=== PATIENT | male | born 1975 | race Caucasian/White ===

== ENCOUNTER → 2019-09-06 | Outpatient (CLI) | payer OTHER ==
--- NOTE | 2019-09-06 09:08 | MR ---
EXAMINATION TYPE: MR shoulder RT wo con DATE OF EXAM: 09/06/2019 9:02 AM COMPARISON: NONE HISTORY: R shoulder pain TECHNIQUE: Multiplanar multispin echo imaging of the right shoulder was performed. FINDINGS: Rotator cuff : Thickening and heterogeneity of the supraspinatus tendon compatible with chronic tendi nopathy. Partial undersurface tear at the level of the insertion of the supraspinatus tendon without evidence for retracted tear. Remaining constituents of the rotator cuff are intact. Bursa: No bursal effusion or thickening is seen. Musculature: There is no muscular tear, contusion, or atrophy. Acromioclavicular joint : Subacromial spur results in impingement. Moderate AC joint arthropathy iden tified. Osseous structures : There are no fractures or regions of abnormal bone marrow signal intensity. Long biceps tendon : The biceps tendon is normally situated within the bicipital groove. No complete or partial biceps tendon tear is present. Glenohumeral Joint fluid : There is no glenohumeral joint effusion. Cartilage and Bone : No focal hyaline cartilage defects are noted. No Hill-Sachs, reverse Hill-Sachs, or bony Bankart lesions are seen. Labrum : There are no SLAP or soft tissue Bankart lesions. No paralabral cysts are seen. OTHER FINDINGS : none IMPRESSION: 1. Chronic tendinopathy with partial tear supraspinatus tendon. 2. Impingement as noted.
== END ==
LOC: RADMRIMAIN 08:15
PROVIDERS: ATTEND Orthopaedic Surgery Sports Medicine
DX: M75.81 Other shoulder lesions, right shoulder (principal); M75.111 Incomplete rotator cuff tear or rupture of right shoulder, not specified as traumatic; M25.811 Other specified joint disorders, right shoulder

== ENCOUNTER → 2019-11-08 | Outpatient (CLI) | payer OTHER ==
--- NOTE | 2019-11-08 10:48 | CT ---
EXAMINATION TYPE: CT abdomen pelvis w con DATE OF EXAM: 11/08/2019 COMPARISON: None HISTORY: Pt feels lumps in abd, diverticulitis CT DLP: 1672 mGycm Automated exposure control for dose reduction was used. TECHNIQUE: Helical acquisition of images was performed from the lung bases through the pelvis. CONTRAST: Performed with Oral Contrast and with IV Contrast, patient injected with 100 mL of Isovue 300. FINDINGS: LUNG BASES: Minimal subsegmental dependent bibasilar atelectasis. LIVER/GB: Low-density hepatic lesion measures 1.4 cm and has an average Hounsfield unit 14 compatible with a benign cyst on series 3 image 11. Remainder of the unenhanced liver is unremarkable. Lamellat ed gallstone is seen in the gallbladder fundus. PANCREAS: No significant abnormality is seen. SPLEEN: No significant abnormality is seen. Small splenule seen adjacent to the spleen. ADRENALS: No significant abnormality is seen. KIDNEYS: The kidneys. Symmetric enhancement and excretion without hydronephrosis. FREE AIR: No free air is visualized. ADENOPATHY: No greater than 1 cm short axis lymph nodes in the abdomen or pelvis. REPRODUCTIVE ORGANS: Prostate gland is slightly heterogenous but nonenlarged. OSSEOUS STRUCTURES: Mild degenerative changes are seen of the thoracolumbar spine most significant a t L5-S1. Small Schmorl's node of the superior endplate of L4. BOWEL: There is lipomatous hypertrophy of the ileocecal valve. Appendix is opacified and within norm al limits. Contrast does not extend into the transverse colon and remainder of the colon. No dilated large or small bowel. Few scattered small colonic diverticula without pericolonic fat stranding. OTHER: Mild noncalcific atheromatous change of the abdominal aorta and mild calcification as well as noncalcified change of the abdominal aortic branches. In the left paracentral ventral subcutaneous tissues there is some ill-defined fat stranding and seri es 3 image 50 IMPRESSION: 1. It is uncertain where the patient's palpable abnormality is located. In the left para midline subc utaneous tissues near the level of the umbilicus there is slight subcutaneous fat stranding and could represent fat necrosis, contusion, or lipomas. 2. Few scattered colonic diverticula with no evidence of acute diverticulitis. 3. Benign-appearing hepatic cyst.
== END | disposition home or self-care (01) ==
LOC: RADCTMAIN 07:27
PROVIDERS: ATTEND Surgery Plastic and Reconstructive Surgery
DX: K57.30 Diverticulosis of large intestine without perforation or abscess without bleeding (principal); K76.89 Other specified diseases of liver
CPT/HCPCS: 74177; Q9967

== ENCOUNTER → 2019-11-28 | Outpatient (CLI) | payer OTHER ==
[2019-11-28 17:07] LABS: HCT 40.6 % (39.0-53.0); HGB 13.6 gm/dL (13.0-17.5); MCH 30.8 pg (25.0-35.0); MCHC 33.5 g/dL (31.0-37.0); MCV 91.7 fL (80.0-100.0); Mean Platelet Volume 7.2; Platelet Count 254 k/uL (150-450); RBC 4.43 m/uL (4.30-5.90); RDW 12.6 % (11.5-15.5); WBC 5.1 k/uL (3.8-10.6)
== END | disposition home or self-care (01) ==
LOC: LABPAT 16:02
PROVIDERS: ATTEND Surgery Plastic and Reconstructive Surgery
DX: Z01.818 Encounter for other preprocedural examination (principal); K80.20 Calculus of gallbladder without cholecystitis without obstruction
CPT/HCPCS: 85027; 93005

== ENCOUNTER 2019-12-02 07:15 | Day surgery (SDC) | payer OTHER ==
[2019-12-01 08:17] VITALS: BMI 32.2
--- NOTE | 2019-12-01 11:53 | P.GSHP ---
History of Present Illness H&P Date: 12/02/19 CHIEF COMPLAINT: Cholecystitis HISTORY OF PRESENT ILLNESS: The patient is a 44-year-old male who presents with history of epigastric including right upper quadrant abdominal pain. He underwent diagnostic studies for the gallbladder. Separately his clinical picture was consistent with cholecystitis. Now he presents for surgical intervention. PAST MEDICAL HISTORY: Please see list PAST SURGICAL HISTORY: Please see list MEDICATIONS: Please see list ALLERGIES: Denies. SOCIAL HISTORY: Please see list FAMILY HISTORY: Pertinent for gallbladder disease REVIEW OF ORGAN SYSTEMS: CONSTITUTIONAL: No reports of fevers or chills. HEENT: Denies any troubles with the vision or hearing. ENDOCRINE: No reports of hypothyroidism. No diabetes. RESPIRATORY: No recent pneumonias. CARDIOVASCULAR: Denies chest pain or palpitations GI: No blood in stools or constipation. MUSCULOSKELETAL: Has occasional joint pain including back pain. NEURO: No seizure disorders or headaches. No recent stroke. PSYCH: Has depression HEMATOLOGIC: No personal or family history of DVTs or pulmonary emboli. PHYSICAL EXAM: VITAL SIGNS: Afebrile vital signs stable GENERAL: Well-developed pleasant male in no acute distress. HEENT: No scleral icterus. Extraocular movements grossly intact. Moist buccal mucosa. NECK: Supple without lymphadenopathy. CHEST: Unlabored respirations. Equal bilateral excursions. CARDIOVASCULAR: Regular rate regular rhythm rhythm. Distal 2+ pulses. ABDOMEN: Soft, nondistended. Tender along the epigastrium and right upper quadrant. MUSCULOSKELETAL: No clubbing, cyanosis, or edema. NEURO : No focal or lateralizing signs. Cranial nerves II-12 within normal limits. PSYCH: Alert and oriented to person, place and time. SKIN: Well perfused. Good skin turgor. ASSESSMENT: 1. Epigastric and right upper quadrant abdominal pain 2. Chronic cholecystitis PLAN: 1. Will need a robotic cholecystectomy possible open. Benefits and risks were described. 2. Heparin for DVT prophylaxis 5000 units. 3. Antibiotic prophylaxis. Past Medical History Past Medical History: Hyperlipidemia, Myocardial Infarction ([place]) Additional Past Medical History / Comment(s): GALLBLADDER DYSFUNCTION Last Myocardial Infarction Date:: 09/2014 History of Any Multi-Drug Resistant Organisms: None Reported Additional Past Surgical History / Comment(s): COLONOSCOPY Past Anesthesia/Blood Transfusion Reactions: No Reported Reaction Past Psychological History: No Psychological Hx Reported Smoking Status: Former smoker Past Alcohol Use History: None Reported Additional Past Alcohol Use History / Comment(s): QUIT SMOKING 2015 Past Drug Use History: None Reported - Past Family History Mother Family Medical History: No Reported History Medications and Allergies Home Medications Medication Instructions Recorded Confirmed Type Atorvastatin [Lipitor] 40 mg PO HS 11/24/19 12/01/19 History FLUoxetine HCL [PROzac] 20 mg PO HS 11/24/19 12/01/19 History Allergies Allergy/AdvReac Type Severity Reaction Status Date / Time No Known Allergies Allergy Verified 12/01/19 08:15
[~2019-12-02 07:15] MED LIST: ACETAMINOPHEN TAB 500 MG TAB PO STA; DEXAMETHASONE SOD PHOSPHATE 10 MG/ML 1 ML VIAL IV ONE; GABAPENTIN 300 MG CAP PO STA; HEPARIN SODIUM,PORCINE 5,000 UNIT/ML 1 ML VIAL SQ ONE; HYDROmorphone 0.5 MG/0.5 ML SYRINGE IVP PRN; INDOCYANINE GREEN 25 MG VIAL IV ONE; LACTATED RINGERS 1,000 ML IV SCH; LIDOCAINE 1% (10MG/ML) FOR IV START INTRADERMA PRN; MIDAZOLAM 2 MG/2 ML VIAL IV PRN; ONDANSETRON 4 MG/2 ML VIAL IVP ONE; SCOPOLAMINE 1.5MG/72HR PATCH TRANSDERM STA; ceFAZolin 3 GM in SODIUM CHLORIDE 0.9% 100 ML IVPB ONE; fentaNYL (PF) 50 MCG/ML 2 ML AMP IVP PRN
[2019-12-02 08:23] LABS: ALT 48 U/L (4-49); AST 36 U/L (17-59); African American GFR (CKD) >90 (>60 ml/min/1.73 sqM); Alkaline Phosphatase 66 U/L (38-126); Anion Gap 7 mmol/L; Blood Urea Nitrogen 13 mg/dL (9-20); Carbon Dioxide 26 mmol/L (22-30); Chloride 105 mmol/L (98-107); Glucose 101 mg/dL (74-99); Non-African American GFR(CKD) >90 (>60 ml/min/1.73 sqM); Potassium 4.5 mmol/L (3.5-5.1); Sodium 138 mmol/L (137-145); Total Bilirubin 0.8 mg/dL (0.2-1.3); Total Protein 6.7 g/dL (6.3-8.2)
[2019-12-02] MEDS ORDERED: KETAMINE 10 MG/ML 20 ML VIAL ONE (09:12)
[2019-12-02] MEDS ORDERED: KETOROLAC 30 MG/ML 1 ML VIAL ONE (09:12)
[2019-12-02] MEDS ORDERED: PROPOFOL 10 MG/ML 20 ML VIAL IV ONE (09:12)
[2019-12-02] MEDS ORDERED: NEOSTIGMINE 1 MG/ML 10 ML VIAL ONE (09:12)
[2019-12-02] MEDS ORDERED: HYDROmorphone (PF) 1 MG/ML ONE (09:12)
[2019-12-02] MEDS ORDERED: ROCURONIUM BROMIDE 10 MG/ML 5 ML VIAL IV ONE (09:12)
[2019-12-02] MEDS ORDERED: LIDOCAINE 1% INJ 10MG/ML (20 ML MDV) ONE (09:12)
[2019-12-02] MEDS ORDERED: MIDAZOLAM 2 MG/2 ML VIAL ONE (09:12)
[2019-12-02] MEDS ORDERED: fentaNYL (PF) 50 MCG/ML 2 ML AMP ONE (09:12)
[2019-12-02] MEDS ORDERED: GLYCOPYRROLATE 0.2 MG/ML 2 ML VIAL ONE (09:12)
[2019-12-02] MEDS ORDERED: INDOCYANINE GREEN 25 MG VIAL IV ONE (09:12)
[2019-12-02] MEDS ORDERED: LIDOCAINE 1%-EPI 1:100,000 20 ML VIAL SQ ONE (09:40)
[2019-12-02] MEDS ORDERED: LACTATED RINGERS 1,000 ML IV ONE (10:19)
--- NOTE | 2019-12-02 10:56 | P.OP ---
Date of Procedure: 12/02/19 Description of Procedure: SURGEON: SHARA ROCHE MD PREOPERATIVE DIAGNOSES: 1. Right upper quadrant abdominal pain 2. Symptomatic cholelithiasis 3. Chronic cholecystitis 4. Depressive disorder 5. History of myocardial infarction 6. Hyperlipidemia POSTOPERATIVE DIAGNOSES: 1. Right upper quadrant abdominal pain 2. Symptomatic cholelithiasis 3. Chronic cholecystitis 4. Depressive disorder 5. History of myocardial infarction 6. Hyperlipidemia 7. Peritoneal adhesions OPERATION: 1. Robotic-assisted da Talya Xi laparoscopic lysis of adhesions over 30 miniutes 2. Robotic-assisted da Talya Xi laparoscopic cholecystectomy, multiport with FIREFLY ESTIMATED BLOOD LOSS: 5 mL. SPECIMENS REMOVED: Gallbladder. COMPLICATIONS: None. OPERATIVE FINDINGS: 1. Complete scarring around the gallbladder with greater omental adhesions to liver and gallbladder requiring extensive lysis of adhesions 2. Dimunitive cystic duct. INDICATIONS: The patient is a 44-year-old male who presents with cholelcystitis. Surgical intervention with a laparoscopic cholecystectomy was described at length including injury to the biliary tree, bleeding, infection, need for further surgery. Informed consent was obtained. Robotic assisted laparoscopic approach was described. Benefits and risks of the procedure including but not limited to bleeding, infection, injury to the biliary tree was described. Informed consent was obtained. DESCRIPTION OF PROCEDURE: Patient was brought to the operating room, placed in supine position. After general induction, the abdomen had been prepped and draped in standard sterile fashion. The robotic da Talya XI system was primed. After a timeout protocol was performed, the patient had been prepped and draped in standard sterile fashion. The patient was injected with indocyanine green. A 5 mm 0 degrees laparoscopic trocar entry was performed along the left upper quadrant. The abdomen insufflated to 15 mmHg pressure which was tolerated well. Diagnostic laparoscopy demonstrated no injury to bowel viscera or mesentery. The liver surface was unremarkable. Next, two 8 mm robotic ports were placed along the right upper abdomen. The camera 8-mm port was maintained along the epigastrium. Another 8 mm port was placed along the left upper abdominal wall after exchanging the 5 mm port. Please note that the ports were placed at least 10 to 15 cm away from the target anatomy of the gallbladder. The robot was docked along the left lateral abdomen. The patient was repositioned in reverse Trendelenburg position. Using a grasper for arm 3, a grasper for arm 4, including hook cautery for arm 1, the robotic system was docked and primed as described. Instruments were interchanged by the carpenter assistant installer including hook cautery, Bovie cautery and clip appliers. I had sat at the console. Extensive greater omental adhesions encased the right lower lobe of the liver including gallbladder. Extensive lysis of adhesions over 30 minutes was performed to free the gallbladder from its surrounding tissues. The gallbladder fundus was retracted over the dome of the liver. FIREFLY was used to identify the common bile duct. Initial attention was brought to the infundibulum which was gently retracted in the inferior lateral approach. A critical view of safety was obtained. The cystic duct was dimunitive and cauterized. Similarly the cystic artery was cauterized. Electro-Bovie cautery was used to remove the gallbladder from the hepatic fossa. Hemostasis was checked and found to be adequate. The robot was undocked. I re-scrubbed into the case. Using a 10 mm Endo Catch bag via the left upper quadrant incision, the specimen was removed from the abdominal cavity. All pneumoperitoneum instruments were evacuated from the abdominal cavity. The incisions were reapproximated using 4-0 Monocryl in an interrupted subcuticular fashion. Fascial defects were less than 8 mm in size. Please note along the trocar sites, local anesthetic was placed as a field block prior to insertion of all instruments. Liquid glue was applied to the skin. At the end of the procedure needle, sponge, and instrument count had been verified correct by the surgical corsetier. The patient was transferred to postanesthesia care unit in stable condition. Intraoperative films were shared with the patient's family who were very pleased with the level of care. Plan - Discharge Summary Discharge Rx Participant: Yes New Discharge Prescriptions: New Ibuprofen [Motrin] 600 mg PO Q8HR PRN #30 tab PRN Reason: Pain Acetaminophen Tab [Tylenol Tab] 1,000 mg PO Q6HR PRN #30 tablet PRN Reason: Pain Continue FLUoxetine HCL [PROzac] 20 mg PO HS Atorvastatin [Lipitor] 40 mg PO HS Discharge Medication List Atorvastatin [Lipitor] 40 mg PO HS 11/24/19 [History] FLUoxetine HCL [PROzac] 20 mg PO HS 11/24/19 [History] Acetaminophen Tab [Tylenol Tab] 1,000 mg PO Q6HR PRN #30 tablet 12/02/19 [Rx] Ibuprofen [Motrin] 600 mg PO Q8HR PRN #30 tab 12/02/19 [Rx] Follow up Appointment(s)/Referral(s): Shara Roche MD [STAFF PHYSICIAN] - 12/06/19 10:00 am Patient Instructions/Handouts: *Surgery [facility] - Scopalamine Patch Instructions, Laparoscopic Cholecystectomy (DC) Activity/Diet/Wound Care/Special Instructions: No lifting over 10 pounds in 2 weeks until December 15. May shower. No bath tub soaks for two weeks until December 15. Diet as tolerated. No driving while on narcotics. Use Tylenol and ibuprofen or Aleve scheduled for the next 24-48 hours for best pain relief. Use ice along incisions for the today to prevent swelling. Discharge Disposition: HOME SELF-CARE
[2019-12-02 10:58] VITALS: TEMP 97.2
[2019-12-02 11:09] VITALS: RESP 16
[2019-12-02] MEDS ORDERED: HYDROcodone/APAP 5-325MG 1 EACH TAB PO PRN (11:11)
[2019-12-02] MEDS ORDERED: KETOROLAC 30 MG/ML 1 ML VIAL IVP PRN (11:11)
[2019-12-02] MEDS ORDERED: SIMETHICONE 80 MG CHEWABLE PO ONE (12:00)
[2019-12-02] MEDS ORDERED: ONDANSETRON 4 MG/2 ML VIAL IVP ONE (13:48)
[2019-12-02 14:26] VITALS: BP 118/68; PULSE 60
== END 2019-12-02 14:35 | disposition home or self-care (01) ==
LOC: OR 07:15
PROVIDERS: ATTEND Surgery Plastic and Reconstructive Surgery
DX: K80.10 Calculus of gallbladder with chronic cholecystitis without obstruction (principal); K66.0 Peritoneal adhesions (postprocedural) (postinfection); E78.5 Hyperlipidemia, unspecified; I25.2 Old myocardial infarction; Z87.891 Personal history of nicotine dependence; R19.7 Diarrhea, unspecified; F32.9 Major depressive disorder, single episode, unspecified; E66.9 Obesity, unspecified; Z68.32 Body mass index [BMI] 32.0-32.9, adult; Z79.899 Other long term (current) drug therapy; Z98.890 Other specified postprocedural states
CPT/HCPCS: 47562; 88304; 80053; 49329; J2250; J1644; J1100; J2710; J0690; J2405; J2001; J3010; J1885; J1170; J2704

== ENCOUNTER → 2020-01-06 | Outpatient (CLI) | payer OTHER ==
--- NOTE | 2020-01-06 11:54 | P.PN ---
Subjective Progress Note Date: 01/06/20 Patient seen and evaluated. CT scan reviewed. No hernia or diverticulitis. Information discussed with patient.
--- NOTE | 2020-01-06 12:01 | CT ---
EXAMINATION TYPE: CT abdomen pelvis w con DATE OF EXAM: 01/06/2020 COMPARISON: CT abdomen and pelvis November 08, 2019. HISTORY: S/P Cholecystectomy, Diverticulitis with abscess. New onSet pain and fever. CT DLP: 1844.60 mGycm, Automated Exposure Control for Dose Reduction was Utilized. CONTRAST: CT scan of the abdomen and pelvis is performed with oral and with IV Contrast, patient injected with 100 ml mL of Isovue 300. FINDINGS: LUNG BASES: No significant abnormality is appreciated. LIVER/GB: Stable lobulated 2.3 cm hypodense lesion anterior liver favor simple thin-walled cyst. Gall bladder now surgically absent. No new suspicious biliary dilatation. PANCREAS: No significant abnormality is seen. SPLEEN: Tiny inferior splenule redemonstrated. ADRENALS: No significant abnormality is seen. KIDNEYS: No significant abnormality is seen. BOWEL: Suboptimal evaluation of bowel without enteric contrast. No suspicious small or large bowel di latation. No significant colonic diverticulosis or CT evidence for acute diverticulitis. Slightly red undant sigmoid colon. PROSTATE/SEMINAL VESICLES: Prostate gland upper limits of normal. LYMPH NODES: No greater than 1cm abdominal or pelvic lymph nodes are appreciated. OSSEOUS STRUCTURES: Moderate disc space narrowing lumbosacral junction with mild spurring. Spurring l ower thoracic spine redemonstrated. OTHER: Tiny fat-containing umbilical hernia. IMPRESSION: No significant new or acute finding is seen to account for patient's clinical symptoms. No CT evidence for acute diverticulitis.
== END | disposition home or self-care (01) ==
LOC: RADCTMAIN 10:31
PROVIDERS: ATTEND Surgery Plastic and Reconstructive Surgery
DX: K57.20 Diverticulitis of large intestine with perforation and abscess without bleeding (principal)
CPT/HCPCS: 74177; Q9967

== ENCOUNTER → 2020-03-01 | Outpatient (CLI) | payer OTHER ==
[2020-03-01 12:36] LABS: Basophils % (A) 1 %; Eosinophils # (A) 0.3 k/uL (0-0.7); Eosinophils % (A) 8 %; HCT 45.2 % (39.0-53.0); HGB 14.7 gm/dL (13.0-17.5); Lymphocytes # (A) 1.5 k/uL (1.0-4.8); Lymphocytes % (A) 34 %; MCH 30.5 pg (25.0-35.0); MCHC 32.5 g/dL (31.0-37.0); MCV 93.7 fL (80.0-100.0); Monocytes # (A) 0.3 k/uL (0-1.0); Monocytes % (A) 6 %; Neutrophils # (A) 2.1 k/uL (1.3-7.7); Neutrophils % (A) 48 %; Platelet Count 256 k/uL (150-450); RBC 4.83 m/uL (4.30-5.90); RDW 12.8 % (11.5-15.5); WBC 4.3 k/uL (3.8-10.6)
[2020-03-01 12:49] LABS: Potassium 4.3 mmol/L (3.5-5.1)
== END | disposition home or self-care (01) ==
LOC: LABPAT 11:27
PROVIDERS: ATTEND Orthopaedic Surgery
DX: Z01.818 Encounter for other preprocedural examination (principal); M75.41 Impingement syndrome of right shoulder
CPT/HCPCS: 36415; 80051; 85025

== ENCOUNTER 2020-03-23 07:46 | Day surgery (SDC) | payer OTHER ==
[2020-03-21 14:02] VITALS: BMI 32.8
--- NOTE | 2020-03-22 14:20 | HP ---
HISTORY AND PHYSICAL CHIEF COMPLAINT: Right shoulder pain. 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 He fell directly on the right side. He has had problems ever since. He has tried therapy along with an injection without much relief. He continues to have pain with overhead use and at night. He also notes some weakness. He has been taking Motrin 4 times a day. PAST MEDICAL HISTORY: Significant for hypertension and hypercholesterolemia. PAST SURGICAL HISTORY: Significant for cholecystectomy. CURRENT MEDICATIONS: Ibuprofen. ALLERGIES: Excedrin. FAMILY HISTORY: Significant for cancer and heart disease. SOCIAL HISTORY: Significant for previous tobacco use; however, he quit in 2014. REVIEW OF SYSTEMS: Sixteen point review of systems otherwise reviewed and is noncontributory. PHYSICAL EXAMINATION: On examination, the patient is approximately 6 foot 4, 270 pounds of endomorphic habitus. HEENT exam is nonfocal. Neck is supple. He is tender about the right shoulder anterior subacromial space. He has moderate subacromial crepitus. Active range of motion of the right shoulder: Forward elevation 150 degrees, external rotation with the arm at side 50 degrees, internal rotation to L4. Motor strength 5- over 5 for abduction and external rotation. Impingement test, NEER test, and Speed test are positive. His distal neurovascular exam appears intact in the right upper extremity. X-rays of the right shoulder obtained in the office show humeral head to acromial distance appears to be maintained. A type 2 acromion is noted. MRI report 09/06/2019 of right shoulder shows evidence of a partial tear involving the supraspinatus. IMPRESSION: Right rotator cuff strain/impingement/possible partial-thickness tear. RECOMMENDATIONS: I talked to the patient at length regarding his condition along with treatment options. He remains quite symptomatic despite conservative measures. After thorough discussion, he opts to proceed with surgery. We will plan to proceed with right shoulder arthroscopy with probable subacromial decompression and possible rotator cuff debridement versus repair. We will likely perform it as an outpatient procedure. Risks and benefits were discussed at length in layman's terms. MMODL / IJN: [id number] /
[~2020-03-23 07:46] MED LIST changes: -ACETAMINOPHEN TAB 500 MG TAB PO STA; -GABAPENTIN 300 MG CAP PO STA; -HEPARIN SODIUM,PORCINE 5,000 UNIT/ML 1 ML VIAL SQ ONE; -INDOCYANINE GREEN 25 MG VIAL IV ONE; +KETOROLAC 30 MG/ML 1 ML VIAL IVP SCH; -LACTATED RINGERS 1,000 ML IV SCH; +METOCLOPRAMIDE 5 MG/ML 2 ML VIAL IVP PRN; -MIDAZOLAM 2 MG/2 ML VIAL IV PRN; -SCOPOLAMINE 1.5MG/72HR PATCH TRANSDERM STA; -fentaNYL (PF) 50 MCG/ML 2 ML AMP IVP PRN
[2020-03-23 08:00] VITALS: TEMP 97.2
[2020-03-23] MEDS ORDERED: ONDANSETRON 4 MG/2 ML VIAL ONE (08:03)
[2020-03-23] MEDS: LACTATED RINGERS 1,000 ML IV SCH ×2 (08:14→09:11)
[2020-03-23] MEDS ORDERED: MIDAZOLAM 2 MG/2 ML VIAL IV ONE (08:40)
[2020-03-23] MEDS ORDERED: MIDAZOLAM 2 MG/2 ML VIAL ONE (09:45)
[2020-03-23] MEDS ORDERED: ROPIVACAINE 5 MG/ML 30 ML VIAL ONE (09:45)
[2020-03-23] MEDS ORDERED: SUCCINYLCHOLINE CHLORIDE 100 MG/5 ML SYR IV ONE (09:45)
[2020-03-23] MEDS ORDERED: PROPOFOL 10 MG/ML 20 ML VIAL IV ONE (09:45)
[2020-03-23] MEDS ORDERED: PHENYLEPHRINE-0.9% NACL SYG 1 MG/10 ML SYRINGE ONE (09:45)
[2020-03-23] MEDS ORDERED: fentaNYL (PF) 50 MCG/ML 2 ML AMP ONE (09:45)
[2020-03-23] MEDS ORDERED: KETOROLAC 30 MG/ML 1 ML VIAL ONE (09:45)
[2020-03-23] MEDS ORDERED: DEXAMETHASONE SOD PHOSPHATE 4 MG/ML 1 ML VIAL ONE (09:45)
[2020-03-23] MEDS ORDERED: EPINEPHrine (PF) 1 ML in SODIUM CHLORIDE 0.9% IRRIGATIO 3,000 ML IRRIGATION ONE ×8 (09:51)
--- NOTE | 2020-03-23 11:11 | P.OP ---
Date of Procedure: 03/23/20 Preoperative Diagnosis: Right shoulder impingement Postoperative Diagnosis: Same in addition to acromioclavicular joint arthritis, 1 cm rotator cuff tear Procedure(s) Performed: Right shoulder arthroscopic subacromial decompression/distal clavicular resect ion/rotator cuff repair Implants: Arthrex 4.75 mm swivel lock anchor 1 Anesthesia: meredith WHALEY Surgeon: Gabriel Gomes Wellness Assistant #1: Bruce Frankel Pathology: none sent Condition: stable Disposition: PACU Indications for Procedure: The patient's a 44-year-old male who presents with persistent/progressive right shoulder pain after an injury last year despite conservative measures. After th orough discussion of the options To proceed with surgery. Operative risks to include infection, neurovascular injury, development of blood clots, possible tendon rerupture, possible postoperative stiffness and need for subsequent procedures was discussed. Informed consent was obtained. Operative Findings: As below Description of Procedure: The patient was brought to the operating room, and after induction of general anesthesia was placed in a beachchair position. A preoperative interscalene block was placed for postoperative analgesia. I examined the right shoulder. There was no gross block to passive motion or gross glenohumeral instability. The right upper extremity was prepped and draped in normal fashion. The bony outlines the acromion, distal clavicle, and coracoid process were outlined with a skin marker. The glenohumeral joint was inflated with 50 mL of saline utilizing a spinal needle from posterior approach. A posterior portal was made through a 5 mm skin incision 1 cm medial and inferior to the posterior lateral border time. A blunt trocar was used to easily into the joint. Diagnostic arthroscopy was performed. An anterior portal was made just lateral to the coracoid process entering the joint above the subscapularis tendon. The subscapularis tendon appeared to be intact. Anterior labrum was intact. The inferior recess was inspected. The posterior labrum was intact. The biceps and anchor were intact. On inspection the rotator cuff, it was intact on the articular surface. The arthroscope was placed into the subacromial space. A lateral portal was made 2 centimeters inferior to the anterior lateral border of the acromion. The soft tissue on the undersurface of the acromion was debrided with a motorized shaver and electrocautery clearly defining the anterior medial and lateral borders as well as the distal clavicle. An anterior inferior acromioplasty was performed with a motorized miguel starting anterolateral, then extending this posteriorly, then extending this medially. I converted to a flat acromion and this was verified in the posterior and lateral viewing portals. The distal 4 mm of clavicle was resected with a motorized miguel as there was significant arthritis and subacromial impingement. The rotator cuff was inspected. There was a high-grade partial-thickness tear involving the posterior aspect the supraspinatus. This went approximately 80% through the tendon. This was completed with a motorized shaver. This measured approximately 1 cm. #2 fiber tape was then passed with a [employer] suture passer. A 4.75 mm swivel lock anchor was then placed laterally after capturing these 2 limbs. Good purchase was obtained. Final arthroscopic view showed adequate compression at the footprint. The arthroscope was then removed. The portals were closed with simple 3-0 nylon sutures. A sterile dressing was applied in addition to an abductor brace. The patient was then awoken from general anesthesia and transferred to recovery room in good condition. Blood loss was estimated at 10 mL. No complications were incurred. Sponge and needle counts were correct in the case. Nico MCNEILL assisted and the major components of the case to include arm positioning, anchor placement, and rotator cuff repair.
[2020-03-23 12:01] VITALS: RESP 20
[2020-03-23 12:40] VITALS: BP 110/60; PULSE 90
--- NOTE | 2020-03-24 18:50 | P.ANPRN ---
Procedure Note - Anesthesia - Nerve Block Performed Right Interscalene Single Time Out Performed: Yes Date of Procedure: 03/23/20 Procedure Start Time: : Procedure Stop Time: :34 Location of Patient: PreOp Indication: Acute Post-Operative Pain, Requested by Surgeon Sedation Type: Sedate with meaningful contact maintained Preparation: Sterile Prep Position: Supine Needle Types: Pajunk Needle Gauge: 21 Ultrasound used to visualize needle placement: Yes Ultrasound used to observe medication spread: Yes Blood Aspirated: No Pain Paresthesia on Injection Noted: No Resistance on Injection: Normal Image Stored and Saved: Yes Events: Uneventful and Well Tolerated (ropi .5% 30cc plus dexamethasone 4mg)
== END 2020-03-23 12:33 | disposition home or self-care (01) ==
LOC: OR 07:46
PROVIDERS: ATTEND Orthopaedic Surgery
DX: S46.011A Strain of muscle(s) and tendon(s) of the rotator cuff of right shoulder, initial encounter (principal); M19.011 Primary osteoarthritis, right shoulder; M75.41 Impingement syndrome of right shoulder; I25.10 Atherosclerotic heart disease of native coronary artery without angina pectoris; I10 Essential (primary) hypertension; Z90.49 Acquired absence of other specified parts of digestive tract; Z88.6 Allergy status to analgesic agent; Z87.891 Personal history of nicotine dependence; Z80.9 Family history of malignant neoplasm, unspecified; Z82.49 Family history of ischemic heart disease and other diseases of the circulatory system; E78.2 Mixed hyperlipidemia; F32.9 Major depressive disorder, single episode, unspecified; E66.9 Obesity, unspecified; N52.9 Male erectile dysfunction, unspecified; Z68.35 Body mass index [BMI] 35.0-35.9, adult; W19.XXXA Unspecified fall, initial encounter; Y99.0 Civilian activity done for income or pay
CPT/HCPCS: 64415; 76942; 29824; 29826; 29827; C1713 ×2; J2250; J1100 ×2; J0690; J2405; J0171; J3010; J1885; J2795; J2370; J0330; J2704

== ENCOUNTER 2020-06-29 08:04 | Day surgery (SDC) | payer OTHER ==
[2020-06-27 08:42] VITALS: BMI 32.8
--- NOTE | 2020-06-28 10:26 | HP ---
HISTORY AND PHYSICAL CHIEF COMPLAINT: Right shoulder pain. 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 Initially, he did well. While doing therapy, he noted increasing painful catching when trying to raise his arm over his head. He does have some night symptoms. He recently tried a Medrol Dosepak without much relief. He has been off work. PAST MEDICAL HISTORY: Significant for hypercholesterolemia and hypertension. PAST SURGICAL HISTORY: Significant for cholecystectomy and previous right shoulder arthroscopy with rotator cuff repair. CURRENT MEDICATIONS: Tramadol. ALLERGIES: EXCEDRIN. FAMILY HISTORY: Significant for heart disease and cancer. SOCIAL HISTORY: Significant for previous tobacco use. 16 POINT REVIEW OF SYSTEMS: Otherwise reviewed and is noncontributory. PHYSICAL EXAMINATION: On examination, the patient is approximately 6 foot 4, 270 pounds of endomorphic habitus. HEENT exam is nonfocal. NECK: Supple. On examination of his right shoulder, portals are well healed. Active range of motion forward elevation 90 degrees, external rotation of the arm side 50 degrees, internal rotation to L4. Passively, I am able to forward elevate him to 150 degrees. His distal neurovascular exam appears intact in the right upper extremity. AP and outlet views of the right shoulder obtained in the office show what appears to be backing out of the lateral anchor. A flat acromion is noted. IMPRESSION: Status post right shoulder arthroscopic rotator cuff repair with likely anchor failure/rotator cuff retear. RECOMMENDATIONS: I talked to the patient at length regarding his condition and treatment options. At this point, he is not progressing and is having significant mechanical symptoms. After thorough discussion, he opts to proceed with surgery. We will plan to proceed with arthroscopic evaluation with probable revision rotator cuff repair. We will likely perform that as an outpatient procedure. Risks and benefits were discussed at length in layman's terms. MMODL / IJN: [id number] /
[~2020-06-29 08:04] MED LIST changes: -KETOROLAC 30 MG/ML 1 ML VIAL IVP SCH; +LACTATED RINGERS 1,000 ML IV SCH
[2020-06-29] MEDS ORDERED: SCOPOLAMINE 1.5MG/72HR PATCH TRANSDERM ONE (08:50)
[2020-06-29] MEDS ORDERED: MIDAZOLAM 2 MG/2 ML VIAL IVP ONE (08:53)
[2020-06-29] MEDS ORDERED: MIDAZOLAM 2 MG/2 ML VIAL ONE (09:40)
[2020-06-29] MEDS ORDERED: LIDOCAINE 1% INJ 10MG/ML (20 ML MDV) ONE (09:40)
[2020-06-29] MEDS ORDERED: SUCCINYLCHOLINE CHLORIDE 100 MG/5 ML SYR IV ONE (09:40)
[2020-06-29] MEDS ORDERED: ROPIVACAINE 5 MG/ML 30 ML VIAL ONE (09:40)
[2020-06-29] MEDS ORDERED: fentaNYL (PF) 50 MCG/ML 2 ML AMP ONE (09:40)
[2020-06-29] MEDS ORDERED: PROPOFOL 10 MG/ML 20 ML VIAL IV ONE (09:40)
--- NOTE | 2020-06-29 10:49 | P.ANPRN ---
Procedure Note - Anesthesia - Nerve Block Performed Right Interscalene Single Time Out Performed: Yes (852) Date of Procedure: 06/29/20 Procedure Start Time: 08:53 Procedure Stop Time: 08:59 Location of Patient: PreOp Indication: Acute Post-Operative Pain, Requested by Surgeon Specifically requested for management of pain by : Gabriel Gomes Sedation Type: Sedate with meaningful contact maintained Preparation: Sterile Prep Position: Supine Catheter: None Needle Types: Pajunk Needle Gauge: 21 Ultrasound used to visualize needle placement: Yes Ultrasound used to observe medication spread: Yes Injectate: 0.5% Ropivacaine (see comment for volume) (30cc) Blood Aspirated: No Pain Paresthesia on Injection Noted: No Resistance on Injection: Normal Image Stored and Saved: Yes Events: Uneventful and Well Tolerated
--- NOTE | 2020-06-29 11:21 | P.OP ---
Date of Procedure: 06/29/20 Preoperative Diagnosis: Recurrent right rotator cuff tear Postoperative Diagnosis: Same Procedure(s) Performed: Right shoulder arthroscopy/anchor removal/revision rotator cuff repair Implants: Arthrex 4.75 mm swivel lock anchor 1, 5.5 mm swivel lock anchor 1 Anesthesia: JUDD [facility] Surgeon: Gabriel Gomes Estimated Blood Loss (ml): 10 Pathology: none sent Condition: stable Disposition: PACU Indications for Procedure: The patient is a 44-year-old male who underwent a right shoulder arthroscopic rotator cuff repair and subsequently had increasing symptoms during therapy. It was noted that he had failure of his lateral anchor. A discussion of the risks and benefits of operative intervention was made with the patient. He opted to proceed with surgery. Operative risks to include infection, neurovascular injury, possible tendon rerupture, and possible need for subsequent procedures was discussed. Informed consent was obtained. Operative Findings: As below Description of Procedure: The patient was brought to the operating room, and after induction of general anesthesia was placed in a beachchair position. A preoperative interscalene block was placed for postoperative analgesia. I examined the right shoulder. There was no gross block to passive motion or gross glenohumeral instability. The [] upper extremity was prepped and draped in normal fashion. The bony outlines the acromion, distal clavicle, and coracoid process were outlined with a skin marker. The glenohumeral joint was inflated with 50 mL of saline utilizing a spinal needle from posterior approach. A posterior portal was made through a 5 mm skin incision 1 cm medial and inferior to the posterior lateral border time. A blunt trocar was used to easily into the joint. Diagnostic arthroscopy was performed. An anterior portal was made just lateral to the coracoid process entering the joint above the subscapularis tendon. The subscapularis tendon appeared to be intact. Anterior labrum was intact. The inferior recess was inspected. The posterior labrum was intact. On inspection the rotator cuff, a re-tear of the anterior aspect the supraspinatus was noted. The posterior portion of the cuff was intact. The arthroscope was placed in the subacromial space. A lateral portals made through a 5 mm skin incision 2 cm inferior to the lateral border of the acromion. The subacromial space appeared to be adequate. The rotator cuff was inspected. Previous fiber tape was noted. Failure of the previous anchor was noted. This was then retrieved along with the eyelet. The suture was removed. The rotator cuff was mobilized. The edges were debrided with motorized shaver. An accessory superior lateral portals made through a 5 mm skin incision just off the lateral edge of the acromion. The appropriate starting awl was utilized to place a 4.75 mm swivel lock anchor just off the articular surface. This anchor had #2 fiber wire preloaded. The FiberWire was passed through the rotator cuff with a scorpion suture passer. A lateral anchor was placed posterior and superior to the previous failed anchor cavity. The appropriate starting awl was utilized. A 5.5 mm swivel lock anchor was inserted with the appropriate purchase after tensioning the rotator cuff. Final arthroscopic view showed adequate decompression of the footprint. The arthroscope was then removed. The portals were closed with simple 3-0 nylon sutures. A sterile dressing was applied in addition to a sling. The patient was then awoken from general anesthesia and transferred to recovery room in good condition. Blood loss was estimated at 10 mL. No complications were incurred. Sponge and needle counts were correct in the case.
[2020-06-29 11:32] VITALS: TEMP 97.7
[2020-06-29 11:52] VITALS: RESP 16
[2020-06-29] MEDS ORDERED: HYDROcodone/APAP 5-325MG 1 EACH TAB ONE (12:17)
[2020-06-29] MEDS ORDERED: HYDROcodone/APAP 5-325MG 1 EACH TAB PO ONE (12:18)
[2020-06-29 12:47] VITALS: BP 118/61; PULSE 83
== END 2020-06-29 12:58 | disposition home or self-care (01) ==
LOC: OR 08:04
PROVIDERS: ATTEND Orthopaedic Surgery
DX: M75.101 Unspecified rotator cuff tear or rupture of right shoulder, not specified as traumatic (principal); I25.2 Old myocardial infarction; E78.5 Hyperlipidemia, unspecified; I10 Essential (primary) hypertension; E78.00 Pure hypercholesterolemia, unspecified; Z90.49 Acquired absence of other specified parts of digestive tract; Z88.6 Allergy status to analgesic agent; Z87.891 Personal history of nicotine dependence; Z79.891 Long term (current) use of opiate analgesic; Z98.890 Other specified postprocedural states; Z82.49 Family history of ischemic heart disease and other diseases of the circulatory system; Z80.9 Family history of malignant neoplasm, unspecified
CPT/HCPCS: 64415; 76942; 29827; C1713 ×3; C1894; J2250; J1100; J0690; J2405; J2001; J3010; J2795; J0330; J2704

== ENCOUNTER → 2020-08-20 | Outpatient (CLI) | payer OTHER ==
--- NOTE | 2020-08-20 14:51 | US ---
EXAMINATION TYPE: US venous doppler duplex LE BI DATE OF EXAM: 08/20/2020 1:55 PM COMPARISON: NONE CLINICAL HISTORY: I82.409 DVT. SIDE PERFORMED: TECHNIQUE: The lower extremity deep venous system is examined utilizing real time linear array sonog ann with graded compression, doppler sonography and color-flow sonography. VESSELS IMAGED: Common Femoral Vein Deep Femoral Vein Greater Saphenous Vein * Femoral Vein Popliteal Vein Small Saphenous Vein * Proximal Calf Veins (* superficial vessels) Right Leg: Negative for DVT Superficial thrombus in medial right calf subcutaneous tissue Left Leg: Negative for DVT Preliminary results phoned to 's office immediately following exam IMPRESSION: 1. No deep venous thrombosis bilateral lower extremities. 2. Superficial thrombus right lower extremity
== END | disposition home or self-care (01) ==
LOC: RADUSWWP 12:49
PROVIDERS: ATTEND Family Medicine
DX: I82.811 Embolism and thrombosis of superficial veins of right lower extremity (principal)
CPT/HCPCS: 93970

== ENCOUNTER → 2020-12-03 | Outpatient (CLI) | payer OTHER ==
[2020-12-03 18:35] LABS: Basophils # (A) 0.05 X 10*3/uL (0.00-0.10); Basophils % (A) 0.9 %; Eosinophils # (A) 0.39 X 10*3/uL (0.04-0.35); Eosinophils % (A) 7.4 %; HCT 48.3 % (39.6-50.0); HGB 16.2 g/dL (13.0-17.0); Lymphocytes # (A) 1.82 X 10*3/uL (0.90-5.00); Lymphocytes % (A) 34.5 %; MCH 31.5 pg (27.0-32.0); MCHC 33.5 g/dL (32.0-37.0); Mean Platelet Volume 9.7 fL (9.5-12.2); Monocytes # (A) 0.44 X 10*3/uL (0.20-1.00); Monocytes % (A) 8.3 %; Neutrophils # (A) 2.56 X 10*3/uL (1.80-7.70); Neutrophils % (A) 48.7 %; Platelet Count 286 X 10*3/uL (140-440); RBC 5.14 X 10*6/uL (4.40-5.60); RDW 12.1 % (11.5-14.5); WBC 5.27 X 10*3/uL (4.50-10.00)
[2020-12-03 20:51] LABS: African American GFR (CKD) 105.6 (60.0-200.0); Albumin 4.4 g/dL (3.80-4.90); Albumin/Globulin Ratio 2.1 (1.60-3.17); Anion Gap 4.4 mmol/L (4.00-12.00); Calcium 9.1 mg/dL (8.7-10.3); Carbon Dioxide 27.6 mmol/L (21.6-31.8); Globulin 2.1 g/dL (1.6-3.3); Non-African American GFR(CKD) 91.1 (60.0-200.0); Potassium 4.8 mmol/L (3.5-5.5); Total Bilirubin 0.5 mg/dL (0.2-1.2); Total Protein 6.5 g/dL (6.2-8.2)
[2020-12-03 20:52] LABS: Chol/HDL Ratio 7.94; LDL Cholesterol,Calculated 204.6 mg/dL (0.0-131.0); VLDL Calculation 45.4 mg/dL (5.00-40.00)
[2020-12-03 21:00] LABS: T4, Free (Free Thyroxine) 1.1 ng/dL (0.80-1.80)
== END | disposition home or self-care (01) ==
LOC: LABWHC1 11:49
PROVIDERS: ATTEND Nurse Practitioner Family
DX: Z00.00 Encounter for general adult medical examination without abnormal findings (principal); Z11.59 Encounter for screening for other viral diseases
CPT/HCPCS: 36415; 80053; 80061; 84439; 84443; 85025; 86803

== ENCOUNTER → 2020-12-21 | Outpatient (CLI) | payer OTHER ==
--- NOTE | 2020-12-23 07:55 | XR ---
EXAMINATION TYPE: XR calcaneus 2V LT DATE OF EXAM: 12/21/2020 COMPARISON: NONE HISTORY: Pain TECHNIQUE: 2 views of the left os calcis are submitted. FINDINGS: There is no evidence for fracture or osseous lesion. Soft tissues are unremarkable. IMPRESSION: Negative
== END | disposition home or self-care (01) ==
LOC: RADXRMAIN 11:56
PROVIDERS: ATTEND Nurse Practitioner Family
DX: M79.672 Pain in left foot (principal)

== ENCOUNTER → 2021-04-02 | Outpatient (CLI) | payer OTHER ==
--- NOTE | 2021-04-02 12:38 | XR ---
EXAMINATION TYPE: XR chest 2V DATE OF EXAM: 04/02/2021 COMPARISON: NONE HISTORY: J20.9 ACUTE BRONCHITIS TECHNIQUE: Frontal and lateral views of the chest are obtained. FINDINGS: There is no focal air space opacity, pleural effusion, or pneumothorax seen. The cardiac silhouette size is within normal limits. The osseous structures are intact. IMPRESSION: No acute cardiopulmonary process.
== END | disposition home or self-care (01) ==
LOC: RADXRMAIN 10:08
PROVIDERS: ATTEND Nurse Practitioner
DX: J20.9 Acute bronchitis, unspecified (principal)
CPT/HCPCS: 71046

== ENCOUNTER → 2021-05-15 | Outpatient (CLI) | payer OTHER ==
--- NOTE | 2021-05-15 13:33 | US ---
EXAMINATION TYPE: US venous doppler duplex LE BI DATE OF EXAM: 05/15/2021 1:20 PM COMPARISON: NONE CLINICAL HISTORY: M79.604 Pain in right leg. Pain, but primarily numbness and tingling bilateral lowe r extremity, especially on the right; c/o coldness in lower extremities at night; smoker. SIDE PERFORMED: Bilateral TECHNIQUE: The lower extremity deep venous system is examined utilizing real time linear array sonog ann with graded compression, doppler sonography and color-flow sonography. VESSELS IMAGED: Common Femoral Vein Deep Femoral Vein Greater Saphenous Vein * Femoral Vein Popliteal Vein Small Saphenous Vein * Proximal Calf Veins (* superficial vessels) Right Leg: Negative for DVT Left Leg: Negative for DVT IMPRESSION: No evidence for DVT
== END | disposition home or self-care (01) ==
LOC: RADUSWWP 12:45
PROVIDERS: ATTEND Family Medicine
DX: M79.604 Pain in right leg (principal)
CPT/HCPCS: 93970

== ENCOUNTER → 2021-12-10 | Outpatient (CLI) | payer OTHER ==
--- NOTE | 2021-12-10 14:43 | XR ---
EXAMINATION TYPE: XR KUB DATE OF EXAM: 12/10/2021 COMPARISON: NONE HISTORY: Recurrent urinary tract infection TECHNIQUE: One view abdominal series FINDINGS: The osseous structures are intact. The bowel gas pattern is nonspecific. No suspicious calcification s overlying the renal outlines. There is some obscuration of the right renal outline due to retained debris within the colon. There is a 2 mm calcification overlying the lower left pelvis which is seen by prior CT scan to represent a phlebolith. IMPRESSION: 1. No suspicious calculi.
== END | disposition home or self-care (01) ==
LOC: RADXRMAIN 14:15
PROVIDERS: ATTEND Nurse Practitioner Family
DX: N23 Unspecified renal colic (principal)
CPT/HCPCS: 74018

== ENCOUNTER → 2023-01-24 | Outpatient (CLI) | payer OTHER ==
[2023-01-24 23:28] LABS: Basophils # (A) 0.05 X 10*3/uL (0.00-0.10); Basophils % (A) 0.9 %; Eosinophils # (A) 0.26 X 10*3/uL (0.04-0.35); Eosinophils % (A) 4.5 %; HCT 48.2 % (39.6-50.0); Immature Grans, Automated 0.2 %; Lymphocytes # (A) 1.74 X 10*3/uL (0.90-5.00); Lymphocytes % (A) 30.1 %; MCH 31.7 pg (27.0-32.0); MCHC 33.2 g/dL (32.0-37.0); MCV 95.4 fL (80.0-97.0); Mean Platelet Volume 9.7 fL (9.5-12.2); Monocytes # (A) 0.39 X 10*3/uL (0.20-1.00); Monocytes % (A) 6.7 %; NRBC Per 100 WBC 0 /100 WBCS (0.0-0.0); Neutrophils # (A) 3.33 X 10*3/uL (1.80-7.70); Neutrophils % (A) 57.6 %; Platelet Count 278 X 10*3/uL (140-440); RBC 5.05 X 10*6/uL (4.40-5.60); RDW 12.4 % (11.5-14.5); WBC 5.78 X 10*3/uL (4.50-10.00)
[2023-01-24 23:50] LABS: ALT 16 U/L (10-49); AST 15 U/L (14-35); African American GFR (CKD) 115.8 (60.0-200.0); Albumin 4.3 g/dL (3.8-4.9); Albumin/Globulin Ratio 2.03 (1.60-3.17); Alkaline Phosphatase 72 U/L (41-126); BUN/Creat Ratio 11.46 Ratio (12.00-20.00); Blood Urea Nitrogen 10.5 mg/dL (9.0-27.0); Calcium 9.5 mg/dL (8.7-10.3); Carbon Dioxide 27.5 mmol/L (20.0-27.5); Chloride 105 mmol/L (96-109); Chol/HDL Ratio 7.51 Ratio; Globulin 2.1 g/dL (1.6-3.3); Glucose 96 mg/dL (70-110); LDL Cholesterol,Calculated 198.8 mg/dL (0.0-131.0); Non-African American GFR(CKD) 99.9 (60.0-200.0); Potassium 5.2 mmol/L (3.5-5.5); Sodium 142 mmol/L (135-145); Total Protein 6.5 g/dL (6.2-8.2)
--- NOTE | 2023-01-25 23:29 | XR ---
EXAMINATION TYPE: XR spine complete AP and Lat, 9 views DATE OF EXAM: 01/24/2023 COMPARISON: NONE HISTORY: 47-year-old male M54.50, stiff neck TECHNIQUE: 9 views FINDINGS: Cervical spine: No predental space widening or prevertebral soft tissue swelling. Some facet and uncovertebral joint arthropathy mid to lower cervical spine. Trace grade 1 anterolisthesis C5-C6. Remaining alignment is maintained. There is mild degenerative disc disease with disc space narrowing at C3-C4. Normal odonto id view. Thoracic spine: 12 rib bearing thoracic vertebral bodies. Reverse S-shaped curvature of the thoracic spine. All pedic les are visualized. Mild degenerative disc disease throughout. Vertebral body heights are preserved a nd alignment is maintained. Lumbar spine: 5 lumbar type vertebral bodies. Hypertrophic facet arthropathy lower lumbar spine. [id number] d egenerative disc disease at L5-S1 with disc space narrowing. Vertebral body heights are preserved and alignment is maintained. IMPRESSION: 1. Cervical spine: Mild spondylotic change mid to lower cervical spine. Trace grade 1 anterolisthesis C5-C6. 2. Thoracic spine: Reverse S-shaped curvature. Mild multilevel degenerative disc disease. 3. Lumbar spine: Mild to moderate degenerative disc disease L5-S1. Hypertrophic facet arthropathy low er lumbar spine. No vertebral compression collapse or malalignment.
== END | disposition home or self-care (01) ==
LOC: RADXRMAIN 10:00
PROVIDERS: ATTEND Family Medicine
DX: M47.812 Spondylosis without myelopathy or radiculopathy, cervical region (principal); Z13.0 Encounter for screening for diseases of the blood and blood-forming organs and certain disorders involving the immune mechanism; Z13.1 Encounter for screening for diabetes mellitus; Z13.29 Encounter for screening for other suspected endocrine disorder; E78.5 Hyperlipidemia, unspecified; M43.12 Spondylolisthesis, cervical region; M51.36 Other intervertebral disc degeneration, lumbar region; M47.816 Spondylosis without myelopathy or radiculopathy, lumbar region
CPT/HCPCS: 72082; 80053; 80061; 83036; 84443; 85025

== ENCOUNTER 2024-01-10 16:35 | Emergency (ER) | payer OTHER ==
[2024-01-10 17:22] VITALS: TEMP 98
--- NOTE | 2024-01-10 19:01 | US ---
EXAMINATION TYPE: US scrotum with doppler. Grayscale and color Doppler Duplex imaging performed of t santiago scrotum. DATE OF EXAM: 01/10/2024 COMPARISON: NONE CLINICAL INDICATION: Male, 48 years old with history of pain left testicle; pain left testicle. EXAM MEASUREMENTS: TESTICLES: Right Testicle: 4.4 x 2.4 x 5.2 cm Left Testicle: 4.8 x 2.6 x 4.2 cm EPIDIDYMIS HEAD: Right Epididymis: .9 x 1.2 x .9 cm Left Epididymis: .9 x 1.6 x 1.7 cm Doppler performed to assess for testicular vascularity; good bilateral color flow and waveforms are s een. There is no evidence of testicular torsion. Presence of hydroceles: no Presence of varicoceles: left IMPRESSION: 1. No evidence for intratesticular mass. 2. A right arterial and venous spectral waveforms to the testes. 3. Left varicocele.
[2024-01-10 20:23] LABS: Appearance,Urine Clear (Clear); Bilirubin,Urine Negative (Negative); Blood,Urine Negative (Negative); Color,Urine Yellow; Glucose,Urine (UA) Negative (Negative); Ketones,Urine Negative (Negative); Leukocyte Esterase,Urine Negative (Negative); Nitrite,Urine Negative (Negative); PH, Urine 5.5 (5.0-8.0); Protein,Urine Negative (Negative); Specific Gravity,Urine 1.024 (1.001-1.035); Urobilinogen,Urine <2.0 mg/dL (<2.0)
--- NOTE | 2024-01-10 21:20 | ED ---
General Adult HPI - General Chief complaint: Urogenital Stated complaint: Groin pain Time Seen by Provider: 01/10/24 19:03 Source: patient Mode of arrival: ambulatory Limitations: no limitations - History of Present Illness Initial comments: 48-year-old male presenting to the ED with a chief complaint of left testicular pain. Patient reports that 3 days ago onset of pain to his left testicle. Denies any urinary symptoms. Denies urethral discharge. No concern for STD. No fever or chills. No other complaints at this time. - Related Data Home Medications Medication Instructions Recorded Confirmed Ibuprofen [Motrin] 800 mg PO Q8HR PRN 03/21/20 06/29/20 traMADol HCL [Ultram] 50 mg PO DAILY PRN 06/27/20 06/29/20 Previous Rx's Medication Instructions Recorded HYDROcodone/APAP 7.5-325MG [[place] 1 tab PO Q6HR PRN 7 Days #28 tab 06/29/20 7.5-325] Allergies Allergy/AdvReac Type Severity Reaction Status Date / Time excedrin Allergy Mild Abdominal Uncoded 06/29/20 08:26 Pain Review of Systems ROS Statement: Those systems with pertinent positive or pertinent negative responses have been documented in the HPI. ROS Other: All systems not noted in ROS Statement are negative. Past Medical History Past Medical History: Hyperlipidemia, Myocardial Infarction ([place]) Additional Past Medical History / Comment(s): hx., severe UTI. Last Myocardial Infarction Date:: 09/2014 History of Any Multi-Drug Resistant Organisms: None Reported Past Surgical History: Cholecystectomy, Orthopedic Surgery Additional Past Surgical History / Comment(s): COLONOSCOPY,rt shoulder rotator cuff Past Anesthesia/Blood Transfusion Reactions: Postoperative Nausea & Vomiting (PONV) Additional Past Anesthesia/Blood Transfusion Reaction / Comment(s): Slow to awke. Past Psychological History: Depression Smoking Status: Former smoker - Past Family History Mother Family Medical History: No Reported History Additional Family Medical History / Comment(s): Uterine cancer General Exam Limitations: no limitations General appearance: alert, in no apparent distress Eye exam: Present: normal appearance Neck exam: Present: normal inspection Respiratory exam: Present: normal lung sounds bilaterally Cardiovascular Exam: Present: regular rate, normal rhythm GI/Abdominal exam: Present: soft exam: Present: other (Declined inclusion paraeducator. Cremasteric reflex intact bilaterally. Left testicle upon palpation does show tenderness to palpation. Area palpation which is tender does have a small mass which feels like a bag of worms.) Back exam: Present: normal inspection Neurological exam: Present: alert, oriented X3 Skin exam: Present: warm, dry Course Vital Signs 01/10/24 16:43 Temperature 98 F Pulse Rate 77 Respiratory 20 Rate Blood Pressure 118/72 O2 Sat by Pulse 98 Oximetry Medical Decision Making - Medical Decision Making Was pt. sent in by a medical professional or institution (, CHARITO, AUTO FORMER MACHINE OPERATOR, urgent care, hospital, or long term...) When possible be specific @ -No Did you speak to anyone other than the patient for history (EMS, parent, family, police, friend...)? What history was obtained from this source @ -No Did you review nursing and triage notes (agree or disagree)? Why? @ -I reviewed and agree with nursing and triage notes Were old charts reviewed (outside hosp., previous admission, EMS record, old EKG, old radiological studies, urgent care reports/EKG's, long term records)? Report findings @ -No old charts were reviewed Differential Diagnosis (chest pain, altered mental status, abdominal pain women, abdominal pain men, vaginal bleeding, weakness, fever, dyspnea, syncope, headache, dizziness, GI bleed, back pain, seizure, CVA, palpatations, mental health, musculoskeletal)? @ -Testicular torsion, epididymitis, STD, varicocele. This not meant to be an all-inclusive list. EKG interpreted by me (3pts min.). @ -None X-rays interpreted by me (1pt min.). @ -None done CT interpreted by me (1pt min.). @ -None done U/S interpreted by me (1pt. min.). @ -Ultrasound interpreted by me which revealed no evidence of testicular mass, good blood flow with no evidence of torsion, and a left varicocele. What testing was considered but not performed or refused? (CT, X-rays, U/S, labs)? Why? @ -None What meds were considered but not given or refused? Why? @ -None Did you discuss the management of the patient with other professionals (professionals i.e. CHARITO Isaac, AUTO FORMER MACHINE OPERATOR, lab, RT, psych nurse, health care social worker, addresser, teacher, president and chief executive officer, case operator)? Give summary @ -No Was smoking cessation discussed for >3mins.? @ -No Was critical care preformed (if so, how long)? @ -No Were there social determinants of health that impacted care today? How? (Homelessness, low income, unemployed, alcoholism, drug addiction, transportation, low edu. Level, literacy, decrease access to med. care, [facility], rehab)? @ -No Was there de-escalation of care discussed even if they declined (Discuss DNR or withdrawal of care, Hospice)? DNR status @ -No What co-morbidities impacted this encounter? (DM, HTN, Smoking, COPD, CAD, Cancer, CVA, ARF, Chemo, Hep., AIDS, mental health diagnosis, sleep apnea, morbid obesity)? @ -None Was patient admitted / discharged? Hospital course, mention meds given and route, prescriptions, significant lab abnormalities, going to OR and other pertinent info. @ -Discharge 48-year-old male presented to the ED with complaints of left testicular pain for the last 3 to 4 days. On examination there is a mass which has a bag of worms feeling that is tender to palpation. Ultrasound revealed no evidence of torsion or intratesticular mass. UA reviewed which is unremarkable with no evidence of infection. Ultrasound does reveal a left varicocele. Patient offered analgesics here in the ED however repeatedly declined. Symptoms likely secondary to this varicocele. Discharged home in stable condition with referral to see urology. Discussed return precautions with patient and verbalized agreement. Undiagnosed new problem with uncertain prognosis? @ -No Drug Therapy requiring intensive monitoring for toxicity (Heparin, Nitro, Insulin, Cardizem)? @ -No Were any procedures done? @ -No Diagnosis/symptom? @ -Left varicocele Acute, or Chronic, or Acute on Chronic? @ -Acute Uncomplicated (without systemic symptoms) or Complicated (systemic symptoms)? @ -Uncomplicated Side effects of treatment? @ -No Exacerbation, Progression, or Severe Exacerbation? @ -No Poses a threat to life or bodily function? How? (Chest pain, [place], [place], pneumonia, PE, COPD, DKA, ARF, appy, cholecystitis, CVA, Diverticulitis, Homicidal, Suicidal, threat to staff... and all critical care pts) @ -No - Lab Data Lab Results 01/10/24 Range/Units 19:51 Urine Color Yellow Urine Appearance Clear (Clear) Urine pH 5.5 (5.0-8.0) Ur Specific [place] 1.024 (1.001-1.035) Urine Protein Negative (Negative) Urine Glucose (UA) Negative (Negative) Urine Ketones Negative (Negative) Urine Blood Negative (Negative) Urine Nitrite Negative (Negative) Urine Bilirubin Negative (Negative) Urine Urobilinogen <2.0 (<2.0) mg/dL Ur Leukocyte Esterase Negative (Negative) Disposition Clinical Impression: Varicocele Disposition: HOME SELF-CARE Condition: Good Instructions (If sedation given, give patient instructions): Varicocele (ED) Additional Instructions: Please return to the Emergency Department if symptoms worsen or any other concerns. Please follow-up with your PCP and/or urology. Is patient prescribed a controlled substance at d/c from ED?: No Referrals: Andrea Sotomayor MD [Primary Care Provider] - 1-2 days Time of Disposition: 21:24
[2024-01-10 21:51] VITALS: BP 105/64; PULSE 58; RESP 16
== END 2024-01-10 21:40 | disposition home or self-care (01) ==
LOC: EC 16:35
DX: I86.1 Scrotal varices (principal); Z88.6 Allergy status to analgesic agent; Z87.891 Personal history of nicotine dependence
CPT/HCPCS: 76870; 81003; 93975; 99284

== ENCOUNTER 2024-03-24 09:21 | Emergency (ER) | payer OTHER ==
[2024-03-24 09:26] VITALS: RESP 18; TEMP 98
--- NOTE | 2024-03-24 10:28 | ED ---
Extremity Problem HPI - General Chief complaint: Extremity Problem,Nontraumatic Stated complaint: R hip pain Time Seen by Provider: 03/24/24 09:36 Source: patient, RN notes reviewed Mode of arrival: ambulatory Limitations: no limitations - History of Present Illness Initial comments: 48-year-old male presents emergency department complaint of severe right hip pain. He states he has no pain at rest only with movement or weightbearing he states this started after he he was getting to bed and states his leg was caught and felt a pop. Patient states he continues to have pain only in the joint. Patient denies any paresthesias he had prior x-rays. Denies any back pain other usual no bowel, bladder and cons retention no saddle anesthesias. - Related Data Home Medications Medication Instructions Recorded Confirmed Ibuprofen [Motrin] 800 mg PO Q8HR PRN 03/21/20 06/29/20 traMADol HCL [Ultram] 50 mg PO DAILY PRN 06/27/20 06/29/20 Previous Rx's Medication Instructions Recorded HYDROcodone/APAP 7.5-325MG [[place] 1 tab PO Q6HR PRN 7 Days #28 tab 06/29/20 7.5-325] Allergies Allergy/AdvReac Type Severity Reaction Status Date / Time excedrin Allergy Mild Abdominal Uncoded 03/24/24 09:26 Pain Review of Systems ROS Statement: Those systems with pertinent positive or pertinent negative responses have been documented in the HPI. ROS Other: All systems not noted in ROS Statement are negative. Past Medical History Past Medical History: Hyperlipidemia, Myocardial Infarction (PA) Additional Past Medical History / Comment(s): hx., severe UTI. Last Myocardial Infarction Date:: 09/2014 History of Any Multi-Drug Resistant Organisms: None Reported Past Surgical History: Cholecystectomy, Orthopedic Surgery Additional Past Surgical History / Comment(s): COLONOSCOPY,rt shoulder rotator cuff Past Anesthesia/Blood Transfusion Reactions: Postoperative Nausea & Vomiting (PONV) Additional Past Anesthesia/Blood Transfusion Reaction / Comment(s): Slow to aw ke. Past Psychological History: Depression Smoking Status: Current every day smoker Past Alcohol Use History: None Reported Past Drug Use History: None Reported - Past Family History Mother Family Medical History: No Reported History Additional Family Medical History / Comment(s): Uterine cancer General Exam Limitations: no limitations General appearance: alert, in no apparent distress Head exam: Present: atraumatic, normocephalic, normal inspection Neck exam: Present: normal inspection, full ROM. Absent: tenderness, meningismus, lymphadenopathy Respiratory exam: Present: normal lung sounds bilaterally. Absent: respiratory distress, wheezes, rales, rhonchi, stridor Cardiovascular Exam: Present: regular rate, normal rhythm, normal heart sounds. Absent: systolic murmur, diastolic murmur, rubs, gallop, clicks Extremities exam: Present: other (Right hip pain with logrolling, movement passive and active, neurovascular intact pulses are equal bilaterally and equal color equal warmth) Back exam: Present: full ROM. Absent: tenderness, paraspinal tenderness, vertebral tenderness Neurological exam: Present: reflexes normal. Absent: motor sensory deficit Course Vital Signs 03/24/24 03/24/24 09:23 11:13 Temperature 98 F 98 F Pulse Rate 79 66 Respiratory 18 18 Rate Blood Pressure 121/75 144/83 O2 Sat by Pulse 98 98 Oximetry Medical Decision Making - Medical Decision Making Was pt. sent in by a medical professional or institution (, PA, LOGISTICS SUPPLY OFFICER, urgent care, hospital, or snf...) When possible be specific @ -No Did you speak to anyone other than the patient for history (EMS, parent, family, police, friend...)? What history was obtained from this source @ -No Did you review nursing and triage notes (agree or disagree)? Why? @ -I reviewed and agree with nursing and triage notes Were old charts reviewed (outside hosp., previous admission, EMS record, old EKG, old radiological studies, urgent care reports/EKG's, snf records)? Report findings @ -No old charts were reviewed Differential Diagnosis (chest pain, altered mental status, abdominal pain women, abdominal pain men, vaginal bleeding, weakness, fever, dyspnea, syncope, headache, dizziness, GI bleed, back pain, seizure, CVA, palpatations, mental health, musculoskeletal)? @ -Hip strain hip contusion hip fracture labral tear EKG interpreted by me (3pts min.). @ -none X-rays interpreted by me (1pt min.). @ -None done CT interpreted by me (1pt min.). @ -CT right hip showing mild osteoarthritis no other acute process. U/S interpreted by me (1pt. min.). @ -None done What testing was considered but not performed or refused? (CT, X-rays, U/S, labs)? Why? @ -None What meds were considered but not given or refused? Why? @ -None Did you discuss the management of the patient with other professionals (professionals i.e. , PA, LOGISTICS SUPPLY OFFICER, lab, RT, psych nurse, social security specialist, reel hooker, teacher, low altitude air defense officer, case technician)? Give summary @ -No Was smoking cessation discussed for >3mins.? @ -No Was critical care preformed (if so, how long)? @ -No Were there social determinants of health that impacted care today? How? (Homelessness, low income, unemployed, alcoholism, drug addiction, transportation, low edu. Level, literacy, decrease access to med. care, residential, re hab)? @ -No Was there de-escalation of care discussed even if they declined (Discuss DNR or withdrawal of care, Hospice)? DNR status @ -No What co-morbidities impacted this encounter? (DM, HTN, Smoking, COPD, CAD, Cancer, CVA, ARF, Chemo, Hep., AIDS, mental health diagnosis, sleep apnea, morbid obesity)? @ -None Was patient admitted / discharged? Hospital course, mention meds given and route, prescriptions, significant lab abnormalities, going to OR and other pertinent info. @ -Discharge CT was unremarkable other than osteoarthritis this more likely to be ligamentous versus labral injury patient will follow-up with orthopedics may require MRI for further testing and evaluation. Undiagnosed new problem with uncertain prognosis? @ -No Drug Therapy requiring intensive monitoring for toxicity (Heparin, Nitro, Insulin, Cardizem)? @ -No Were any procedures done? @ -No Diagnosis/symptom? @ -right hip strain Acute, or Chronic, or Acute on Chronic? @ acute Uncomplicated (without systemic symptoms) or Complicated (systemic symptoms)? @ -uncomplicated Side effects of treatment? @ -No Exacerbation, Progression, or Severe Exacerbation? @ -No Poses a threat to life or bodily function? How? (Chest pain, [place], PA, pneumonia, PE, COPD, DKA, ARF, appy, cholecystitis, CVA, Diverticulitis, Homicidal, Suicidal, threat to staff... and all critical care pts) @ -No Disposition Clinical Impression: Strain of right hip, Osteoarthritis of right hip Disposition: HOME SELF-CARE Condition: Stable Instructions (If sedation given, give patient instructions): Hip Sprain (ED) Additional Instructions: Please return to the Emergency Department if symptoms worsen or any other concerns. Is patient prescribed a controlled substance at d/c from ED?: No Referrals: Isac Odom MD [Medical Doctor] - 1-2 days Time of Disposition: 10:59
--- NOTE | 2024-03-24 10:46 | CT ---
EXAMINATION TYPE: CT hip RT wo con DATE OF EXAM: 03/24/2024 COMPARISON: No radiographic correlation available HISTORY: 48-year-old male Right hip pain x6 days. No known injury. TECHNIQUE: Contiguous axial scanning of the right hip without IV contrast. Coronal and sagittal recon structions performed. CT DLP: 831.4 mGycm Automated exposure control for dose reduction was used. FINDINGS: There is mild degenerative spurring at the right SI joint. Slight asymmetric joint space narrowing along the posterior aspect of the right hip and mild marginal spurring at the superior femoral head neck junction. No significant joint effusion. No evidence for hip fracture. No abnormal fluid collection is identified. IMPRESSION: 1. MILD EARLY DEGENERATIVE CHANGES AT THE RIGHT HIP. NO ACUTE FRACTURE SEEN. 2. ADDITIONAL MILD RIGHT SI JOINT OA.
[2024-03-24 11:16] VITALS: BP 144/83; PULSE 66
== END 2024-03-24 11:20 | disposition home or self-care (01) ==
LOC: EC 09:21
DX: S76.011A Strain of muscle, fascia and tendon of right hip, initial encounter (principal); M19.90 Unspecified osteoarthritis, unspecified site; F17.200 Nicotine dependence, unspecified, uncomplicated; Z88.8 Allergy status to other drugs, medicaments and biological substances; X58.XXXA Exposure to other specified factors, initial encounter
CPT/HCPCS: 99283